=== PATIENT | female | born 1985 | race Caucasian/White ===

== ENCOUNTER 2017-10-02 02:08 | Emergency (ER) | payer OTHER ==
[~2017-10-02] VITALS: Ht 170.2 cm; Wt 82.7 kg
[~2017-10-02 02:08] MED LIST: ALBUTEROL SULF8.5 GM IH; FIORICET,ESG1 TABLET PO; FLEXERIL10 MG PO; IBUPROFEN800 MG PO; KEFLEX500 MG PO; LEVAQUIN750 MG PO; MOBIC7.5 MG PO; NAPROSYN500 MG PO; NAPROXEN500 MG PO; NO HOME MEDS; NOHOMEMEDS; PERCOCET 5/31 TABLET PO; PHENERGAN-CODE120 ML PO; PREDNISONE20 MG PO; PYRIDIUM200 MG PO; SKELAXIN800 MG PO; TESSALON200 MG PO; TOPAMAX25 MG PO; TORADOL10 MG PO; ULTRAM50 MG PO; ZOFRAN4 MG PO
[2017-10-02 02:41] LABS: BASOPHIL (%) 0.4 % (0-1); EOSINOPHIL (%) 0.5 % (0-5); EOSINOPHIL COUNT 0.1 K/uL (0-0.3); HEMATOCRIT 34.9 % (36.0-46.0); HEMOGLOBIN 12.1 G/DL (11.9-15.5); IMMATURE GRANULOCYTE (%) 0.4 % (0.0-0.7); LYMPHOCYTE (%) 27.6 % (15-42); LYMPHOCYTE COUNT 2.9 K/uL (1.0-2.8); MCH 32.9 PG (29.0-34.0); MCHC 34.7 G/DL (30.0-36.0); MCV 94.8 FL (83-99); MONOCYTE (%) 5.7 % (3-12); MONOCYTE COUNT 0.6 K/uL (0-0.8); NEUTROPHIL (%) 65.4 % (45-76); NEUTROPHIL COUNT 6.9 K/uL (1.8-6.4); PLATELET COUNT 314 K/uL (156-360); RBC DIS.WIDTH-CV 12.8 % (11.8-14.6); RBC DIS.WIDTH-SD 44.8 % (39-53); RED BLOOD COUNT 3.68 M/uL (3.80-5.20); WHITE BLOOD COUNT 10.6 K/uL (4.1-10.2)
[2017-10-02 02:48] LABS: ALBUMIN 3.8 g/dL (3.2-4.8); CHLORIDE 106 mEq/L (99-109); POTASSIUM 3.2 mEq/L (3.7-5.4); SODIUM 139 mEq/L (136-147)
[2017-10-02 02:51] LABS: GLUCOSE 208 mg/dL (70-99); TOTAL PROTEIN 7.2 g/dL (6.4-8.3)
[2017-10-02 02:52] LABS: TOTAL BILIRUBIN 0.6 mg/dL (0.0-1.0)
[2017-10-02 02:53] LABS: SERUM ETHYL ALCOHOL < 10 mg/dL
[2017-10-02 02:54] LABS: CREATININE 0.8 mg/dL (0.6-1.3); GFR ESTIMATE (CALCULATED) > 59 mL/min/
[2017-10-02 02:55] LABS: ALKALINE PHOSPHATASE 82 IU/L (3-129)
[2017-10-02 02:56] LABS: AST (GOT) 13 IU/L (2-34); UREA NITROGEN (BUN) 8 mg/dL (9-23)
[2017-10-02 02:58] LABS: ACETAMINOPHEN (TYLENOL) < 10 mcg/mL (10-30); ALT (GPT) 8 IU/L (3-49); SALICYLATE < 5.0 MG/DL (15-30)
[2017-10-02 02:58] LABS: APPEARANCE SL.HAZY ((CLEAR)); BILIRUBIN NEGATIVE; BLOOD LARGE; COLOR RED ((YELLOW)); GLUCOSE (STRIP) 150; KETONES NEGATIVE; LEUKOCYTES TRACE; NITRITE NEGATIVE; PROTEIN (STRIP) 100; SPECIFIC GRAVITY 1.013 (1.000-1.030); UROBILINOGEN 0.2 MG/DL (0.2-1.0)
[2017-10-02 03:04] LABS: QUANTITATIVE HCG < 4.0 MIU/ML
[2017-10-02 03:09] LABS: AMPHETAMINE NEGATIVE (500 ng/mL); BARBITURATES NEGATIVE (200 ng/mL); BENZODIAZEPINES NEGATIVE (150 ng/mL); BUPRENORPHINE NEGATIVE (10 ng/mL); COCAINE NEGATIVE (150 ng/mL); METHADONE NEGATIVE (200 ng/mL); METHAMPHETAMINE NEGATIVE (500 ng/mL); OPIATES (MORPHINE) PRESUMPTIVE POSITIVE (100 ng/mL); OXYCODONE NEGATIVE (100 ng/mL); PHENCYCLIDINE NEGATIVE (25 ng/mL); PROPOXYPHENE NEGATIVE (300 ng/mL); THC CANNABINOIDS NEGATIVE (50 ng/mL); TRICYCLIC ANTIDEPRESSANTS NEGATIVE (300 ng/mL)
[2017-10-02 03:21] LABS: BACTERIA RARE /HPF; EPITHELIAL CELLS 3+ /HPF; MUCUS NONE SEEN /LPF; RED BLOOD CELLS 20-30 /HPF (0-5); UCUL ADDED? NO; WHITE BLOOD CELLS 0-5 /HPF (0-5)
[2017-10-02] MEDS ORDERED: ZOFRAN ODT4 MG PO (05:39)
[2017-10-02 08:58] VITALS: BP 103/63
== END 2017-10-02 09:11 | disposition home or self-care (01) ==
LOC: EME 02:08
PROVIDERS: Emergency Medicine
DX: T40.2X1A Poisoning by other opioids, accidental (unintentional), initial encounter (principal); J45.909 Unspecified asthma, uncomplicated; Z87.442 Personal history of urinary calculi; Z85.41 Personal history of malignant neoplasm of cervix uteri
CPT/HCPCS: 80053; 81003; 84702; 84999; 85025; 99281; 99285; G0480; J1630; J2550; J7030

== ENCOUNTER 2017-10-30 00:03 | Emergency (ER) | payer OTHER ==
[~2017-10-30] VITALS: Ht 170.2 cm; Wt 109.1 kg
[~2017-10-30 00:03] MED LIST changes: +ZOFRAN ODT4 MG PO
[2017-10-30 00:54] LABS: BASOPHIL (%) 0.3 % (0-1); EOSINOPHIL (%) 1.8 % (0-5); EOSINOPHIL COUNT 0.2 K/uL (0-0.3); HEMATOCRIT 36.2 % (36.0-46.0); HEMOGLOBIN 12.6 G/DL (11.9-15.5); IMMATURE GRANULOCYTE (%) 0.4 % (0.0-0.7); LYMPHOCYTE (%) 34.6 % (15-42); LYMPHOCYTE COUNT 3.7 K/uL (1.0-2.8); MCH 32.9 PG (29.0-34.0); MCHC 34.8 G/DL (30.0-36.0); MCV 94.5 FL (83-99); MONOCYTE COUNT 1.1 K/uL (0-0.8); NEUTROPHIL (%) 52.9 % (45-76); NEUTROPHIL COUNT 5.6 K/uL (1.8-6.4); PLATELET COUNT 320 K/uL (156-360); RBC DIS.WIDTH-CV 11.9 % (11.8-14.6); RED BLOOD COUNT 3.83 M/uL (3.80-5.20); WHITE BLOOD COUNT 10.6 K/uL (4.1-10.2)
[2017-10-30 01:02] LABS: CHLORIDE 106 mEq/L (99-109); POTASSIUM 4.1 mEq/L (3.7-5.4); SODIUM 139 mEq/L (136-147)
[2017-10-30 01:04] LABS: GLUCOSE 111 mg/dL (70-99)
[2017-10-30 01:07] LABS: CREATININE 0.8 mg/dL (0.6-1.3); GFR ESTIMATE (CALCULATED) > 59 mL/min/
[2017-10-30 01:08] LABS: UREA NITROGEN (BUN) 13 mg/dL (9-23)
[2017-10-30 01:16] LABS: QUANTITATIVE HCG < 4.0 MIU/ML
[2017-10-30] MEDS ORDERED: VIBRAMYCIN100 MG PO (04:03)
[2017-10-30] MEDS ORDERED: PREDNISONE20 MG PO (04:03)
[2017-10-30 04:49] VITALS: BP 111/84
== END 2017-10-30 04:50 | disposition home or self-care (01) ==
LOC: EXP 00:03 → EME 00:03 → EXP 04:50
PROVIDERS: Physician Assistant
DX: O99.712 Diseases of the skin and subcutaneous tissue complicating pregnancy, second trimester (principal); H05.013 Cellulitis of bilateral orbits; O99.89 Other specified diseases and conditions complicating pregnancy, childbirth and the puerperium; H10.33 Unspecified acute conjunctivitis, bilateral; Z3A.08 8 weeks gestation of pregnancy; Z85.41 Personal history of malignant neoplasm of cervix uteri; Z86.018 Personal history of other benign neoplasm
CPT/HCPCS: 70481; 80048; 83605; 84702; 85025; 87040; 99281; 99285; J0696; J1200; J2930; J7030